=== PATIENT | female | born 1965 | race Caucasian/White ===

== ENCOUNTER 2016-08-19 20:34 | Emergency (ER) | payer OTHER ==
[2016-08-19] MEDS ORDERED: ALPRAZolam 0.5 MG TAB PO STA (21:13)
[2016-08-19] MEDS ORDERED: oxyCODONE ER 15 MG TAB.ER.12H PO STA (21:13)
--- NOTE | 2016-08-19 21:19 | ED ---
Anxiety HPI - General Chief Complaint: Anxiety Stated Complaint: anxiety/chest pain Time Seen by Provider: 08/19/16 21:00 Source: patient Mode of arrival: ambulatory - History of Present Illness Initial Comments: This patient is a 51 year old woman who presents with complaint that she is having some chest tightness all across her chest. It is been going on all day. She believes that it is anxiety, related to the fact that her is in the hospital and it sounds as if he has had an anoxic brain injury and will end up dying in the next few hours. The patient does have history of underlying anxiety and takes Xanax but has been without her medications for over 24 hours now. In addition she is having some left hip pain that she states is chronic and for which she takes OxyContin 30 mg 3 times a day, and she has been without this medication. Related to the chest pain, it is constant, tight feeling, moderate intensity, she has not had any relieving factors, and she states is made worse by stress. She is not having any associated symptoms other than the fact that she had some palpitations associated. MD Complaint: anxiety, other (Chest pain) Onset/Timin -: days(s) Symptoms: chest pain Place: home Previous History of Same: Yes Severity: moderate Quality: constant Provoking factors: emotional stress, recent /illness of family member Improves With: nothing Worsens With: nothing Associated symptoms: chest pain, shortness of breath - Related Data Home Medications: Home Medications Medication Instructions Recorded Confirmed Hydrocodone/Acetaminophen [[place] 1 tab PO Q4H PRN 10/17/14 08/19/16 10-325] ALPRAZolam [Xanax] 1 mg PO TID 01/25/15 08/19/16 Gabapentin [Neurontin] 800 mg PO TID 08/19/16 08/19/16 Lisinopril [Zestril] 10 mg PO QAM 08/19/16 08/19/16 oxyCODONE HCL 30 mg PO TID 08/19/16 08/19/16 Allergies/Adverse Reactions: Allergies Allergy/AdvReac Type Severity Reaction Status Date / Time ibuprofen [From Motrin] Allergy Rash/Hives Verified 08/19/16 21:23 ketorolac tromethamine Allergy Rash/Hives Verified 08/19/16 21:23 [From Toradol] Penicillins Allergy Anaphylaxis Verified 08/19/16 21:23 Review of Systems ROS Statement: Those systems with pertinent positive or pertinent negative responses have been documented in the HPI. ROS Other: All systems not noted in ROS Statement are negative. Constitutional: Denies: fever, weakness Eyes: Denies: vision change Respiratory: Denies: cough, dyspnea, wheezes Cardiovascular: Reports: chest pain, palpitations. Denies: edema, syncope Gastrointestinal: Denies: abdominal pain, nausea, vomiting Musculoskeletal: Denies: back pain Skin: Denies: rash Neurological: Denies: headache, weakness, numbness Psychiatric: Reports: anxiety. Denies: auditory hallucinations, visual hallucinations, homicidal thoughts, suicidal thoughts Past Medical History Past Medical History: No Reported History, Osteoarthritis (OA) History of Any Multi-Drug Resistant Organisms: None Reported Past Surgical History: Section, Hysterectomy, Orthopedic Surgery Additional Past Surgical History / Comment(s): laparoscopy Past Psychological History: Anxiety Smoking Status: Former smoker Past Alcohol Use History: Occasional Past Drug Use History: None Reported General Exam Limitations: no limitations General appearance: alert, in no apparent distress, anxious Head exam: Present: atraumatic, normocephalic, normal inspection Eye exam: Present: normal appearance. Absent: scleral icterus, conjunctival injection ENT exam: Present: normal oropharynx Neck exam: Present: normal inspection, full ROM Respiratory exam: Present: normal lung sounds bilaterally. Absent: respiratory distress, wheezes, rales, rhonchi, stridor Cardiovascular Exam: Present: regular rate, normal rhythm, normal heart sounds. Absent: systolic murmur, diastolic murmur, rubs, gallop GI/Abdominal exam: Present: soft. Absent: distended, tenderness, guarding, rebound, mass Extremities exam: Present: normal inspection, normal capillary refill. Absent: pedal edema, calf tenderness Back exam: Present: normal inspection. Absent: CVA tenderness (R), CVA tenderness (L) Neurological exam: Present: alert Psychiatric exam: Present: anxious. Absent: flat affect, manic, homicidal ideation, suicidal ideation Skin exam: Present: warm, dry, intact, normal color. Absent: rash Course Vital Signs 08/19/16 08/19/16 08/19/16 20:51 21:06 21:52 Temperature 98.7 F 97.7 F Pulse Rate 108 H 95 Pulse Rate [ 101 H [place] Stitcher ] Respiratory 26 H 18 Rate Blood Pressure 155/90 151/93 O2 Sat by Pulse 98 97 Oximetry Medical Decision Making - Lab Data Result diagrams: 08/19/16 21:00 08/19/16 21:00 Lab Results 08/19/16 08/19/16 08/19/16 Range/Units 21:00 21:00 21:00 WBC 10.1 (3.8-10.6) k/uL RBC 3.94 (3.80-5.40) m/uL Hgb 13.7 (11.4-16.0) gm/dL Hct 41.8 (34.0-46.0) % MCV 106.2 H (80.0-100.0) fL MCH 34.8 (25.0-35.0) pg MCHC 32.8 (31.0-37.0) g/dL RDW 13.7 (11.5-15.5) % Plt Count 231 (150-450) k/uL Neutrophils % 59 % Lymphocytes % 32 % Monocytes % 3 % Eosinophils % 3 % Basophils % 1 % Neutrophils # 6.0 (1.3-7.7) k/uL Lymphocytes # 3.3 (1.0-4.8) k/uL Monocytes # 0.3 (0-1.0) k/uL Eosinophils # 0.3 (0-0.7) k/uL Basophils # 0.1 (0-0.2) k/uL Macrocytosis Moderate PT (9.0-12.0) sec INR (<1.1) APTT (22.0-30.0) sec Sodium 141 (137-145) mmol/L Potassium 3.9 (3.5-5.1) mmol/L Chloride 106 (98-107) mmol/L Carbon Dioxide 20 L (22-30) mmol/L Anion Gap 15 mmol/L BUN 13 (7-17) mg/dL Creatinine 0.70 (0.52-1.04) mg/dL Est GFR (MDRD) Af Amer >60 (>60 ml/min/1.73 sqM) Est GFR (MDRD) Non-Af >60 (>60 ml/min/1.73 sqM) Glucose 96 (74-99) mg/dL Calcium 9.7 (8.4-10.2) mg/dL Magnesium 2.0 (1.6-2.3) mg/dL Total Bilirubin 1.0 (0.2-1.3) mg/dL AST 24 (14-36) U/L ALT 30 (9-52) U/L Alkaline Phosphatase 89 (38-126) U/L Total Creatine Kinase 95 (30-135) U/L CK-MB (CK-2) 1.9 (0.0-2.4) ng/mL CK-MB (CK-2) Rel Index 2.0 Troponin I <0.012 (0.000-0.034) ng/mL Total Protein 7.8 (6.3-8.2) g/dL Albumin 4.7 (3.5-5.0) g/dL 08/19/16 Range/Units 21:00 WBC (3.8-10.6) k/uL RBC (3.80-5.40) m/uL Hgb (11.4-16.0) gm/dL Hct (34.0-46.0) % MCV (80.0-100.0) fL MCH (25.0-35.0) pg MCHC (31.0-37.0) g/dL RDW (11.5-15.5) % Plt Count (150-450) k/uL Neutrophils % % Lymphocytes % % Monocytes % % Eosinophils % % Basophils % % Neutrophils # (1.3-7.7) k/uL Lymphocytes # (1.0-4.8) k/uL Monocytes # (0-1.0) k/uL Eosinophils # (0-0.7) k/uL Basophils # (0-0.2) k/uL Macrocytosis PT 10.1 (9.0-12.0) sec INR 1.0 (<1.1) APTT 22.1 (22.0-30.0) sec Sodium (137-145) mmol/L Potassium (3.5-5.1) mmol/L Chloride (98-107) mmol/L Carbon Dioxide (22-30) mmol/L Anion Gap mmol/L BUN (7-17) mg/dL Creatinine (0.52-1.04) mg/dL Est GFR (MDRD) Af Amer (>60 ml/min/1.73 sqM) Est GFR (MDRD) Non-Af (>60 ml/min/1.73 sqM) Glucose (74-99) mg/dL Calcium (8.4-10.2) mg/dL Magnesium (1.6-2.3) mg/dL Total Bilirubin (0.2-1.3) mg/dL AST (14-36) U/L ALT (9-52) U/L Alkaline Phosphatase (38-126) U/L Total Creatine Kinase (30-135) U/L CK-MB (CK-2) (0.0-2.4) ng/mL CK-MB (CK-2) Rel Index Troponin I (0.000-0.034) ng/mL Total Protein (6.3-8.2) g/dL Albumin (3.5-5.0) g/dL - EKG Data -: EKG Interpreted by Pa EKG shows normal: sinus rhythm, axis (Normal), intervals (Normal), QRS complexes (Normal) Rate: tachycardia Interpretation: nonspecific ST-T wave changes Disposition Clinical Impression: Acute anxiety, Chest pain Disposition: Left Against Medical Advice Condition: Undetermined Instructions: Generalized Anxiety Disorder (ED) Referrals: Yue Parikh MD [Primary Care Provider] - 1-2 days
[2016-08-19 21:24] LABS: Basophils # (A) 0.1 k/uL (0-0.2); Basophils % (A) 1 %; CH 35.1; CHCM 33.2; Eosinophils # (A) 0.3 k/uL (0-0.7); Eosinophils % (A) 3 %; HCT 41.8 % (34.0-46.0); HDW 2.22; HGB 13.7 gm/dL (11.4-16.0); Luc # (Auto) 0.22; Luc % (Auto) 2; Lymphocytes # (A) 3.3 k/uL (1.0-4.8); Lymphocytes % (A) 32 %; MCH 34.8 pg (25.0-35.0); MCHC 32.8 g/dL (31.0-37.0); MCV 106.2 fL (80.0-100.0); Macrocytosis Moderate; Mean Platelet Volume 6.5; Monocytes # (A) 0.3 k/uL (0-1.0); Monocytes % (A) 3 %; Neutrophils % (A) 59 %; RBC 3.94 m/uL (3.80-5.40); RDW 13.7 % (11.5-15.5); WBC 10.1 k/uL (3.8-10.6); WBC (Perox) 10.21
[2016-08-19] MEDS ORDERED: LISINOPRIL 10 MG TAB PO STA (21:30)
[2016-08-19 21:39] LABS: ALT 30 U/L (9-52); AST 24 U/L (14-36); Alkaline Phosphatase 89 U/L (38-126); Anion Gap 15 mmol/L; Blood Urea Nitrogen 13 mg/dL (7-17); Calcium 9.7 mg/dL (8.4-10.2); Carbon Dioxide 20 mmol/L (22-30); Chloride 106 mmol/L (98-107); Glucose 96 mg/dL (74-99); Non-African American GFR(MDRD) >60 (>60 ml/min/1.73 sqM); Potassium 3.9 mmol/L (3.5-5.1); Sodium 141 mmol/L (137-145); Total Protein 7.8 g/dL (6.3-8.2)
[2016-08-19 21:41] LABS: Partial Thromboplastin Time 22.1 sec (22.0-30.0); Prothrombin Time 10.1 sec (9.0-12.0)
[2016-08-19 21:51] LABS: Creatine Kinase 95 U/L (30-135)
[2016-08-19 21:53] VITALS: BP 151/93; PULSE 95; RESP 18; TEMP 97.7
--- NOTE | 2016-08-19 21:58 | XR ---
EXAMINATION TYPE: XR chest 1V portable DATE OF EXAM: 08/19/2016 9:35 PM COMPARISON: 03/21/2013 HISTORY: Chest pain TECHNIQUE: Single frontal view of the chest is obtained. FINDINGS: There is no heart failure nor confluent pneumonic infiltrate. There are no hilar masses. T here are chest leads. I see no pleural effusion. IMPRESSION: No active cardiopulmonary disease. No change.
[2016-08-19 22:04] LABS: Creatine Kinase MB 1.9 ng/mL (0.0-2.4); Troponin I <0.012 ng/mL (0.000-0.034)
== END 2016-08-19 22:10 | disposition left against medical advice (07) ==
LOC: EC 20:34
DX: F41.9 Anxiety disorder, unspecified (principal); R07.89 Other chest pain; G89.29 Other chronic pain; M25.552 Pain in left hip; Z87.891 Personal history of nicotine dependence; M19.90 Unspecified osteoarthritis, unspecified site; Z79.891 Long term (current) use of opiate analgesic; Z79.899 Other long term (current) drug therapy; Z88.6 Allergy status to analgesic agent; Z88.0 Allergy status to penicillin
CPT/HCPCS: 36415; 71010; 80053; 82550; 82553; 83735; 84484; 85025; 85610; 85730; 93005; 99284

== ENCOUNTER 2016-11-15 21:37 | Emergency (ER) | payer OTHER ==
[2016-11-15] MEDS ORDERED: SODIUM CHLORIDE 0.9% 1,000 ML IV STA (21:48)
[2016-11-15] MEDS ORDERED: RX INFO: IV CONTRAST WAS GIVEN 1 EACH MISC MISCELLANE PRN (21:48)
[2016-11-15] MEDS ORDERED: LORazepam 2 MG/ML SYRINGE IV STA (21:49)
--- NOTE | 2016-11-15 21:59 | ED ---
Abdominal Pain HPI - General Chief Complaint: Abdominal Pain Stated Complaint: abd pain Time Seen by Provider: 11/15/16 21:41 Source: patient, EMS Mode of arrival: EMS Limitations: no limitations - History of Present Illness Initial Comments: This is a 51-year-old female presents emergency department via EMS chief complaint abdominal pain. Patient has had abdominal pain over the last 1 month states been worsening. She complains of left lower abdominal pain. Patient states over the last today she developed nausea vomiting diarrhea. Patient states in February she had C. diff. She states that she's had multiple episodes of loose watery diarrhea. She denies any known fever but states that she's had some chills. She also complains of dysuria and states it's been going on for the last 1 week. Patient states that she has had a prior C- section 2 white any tubal ligation and hysterectomy. No history of diverticulitis no history kidney stones. - Related Data Home Medications Medication Instructions Recorded Confirmed Hydrocodone/Acetaminophen [[place] 1 tab PO Q4H PRN 10/17/14 11/15/16 10-325] ALPRAZolam [Xanax] 1 mg PO BID 01/25/15 11/15/16 Gabapentin [Neurontin] 800 mg PO TID 08/19/16 11/15/16 oxyCODONE HCL 30 mg PO TID 08/19/16 11/15/16 Carisoprodol [Soma] 350 mg PO TID 11/15/16 11/15/16 Lisinopril [Prinivil] 20 mg PO DAILY 11/15/16 11/15/16 Loperamide HCl [Imodium A-D] 2 mg PO DAILY PRN 11/15/16 11/15/16 Previous Rx's Medication Instructions Recorded Ondansetron Odt [Zofran Odt] 4 mg PO Q8HR PRN #10 tab 11/15/16 Phenazopyridine [Pyridium] 200 mg PO TID #6 tablet 11/15/16 Allergies Allergy/AdvReac Type Severity Reaction Status Date / Time ibuprofen [From Motrin] Allergy Rash/Hives Verified 11/15/16 22:03 ketorolac tromethamine Allergy Rash/Hives Verified 11/15/16 22:03 [From Toradol] Penicillins Allergy Anaphylaxis Verified 11/15/16 22:03 Review of Systems ROS Statement: Those systems with pertinent positive or pertinent negative responses have been documented in the HPI. ROS Other: All systems not noted in ROS Statement are negative. Past Medical History Past Medical History: No Reported History, Osteoarthritis (OA) History of Any Multi-Drug Resistant Organisms: None Reported Past Surgical History: Section, Hysterectomy, Orthopedic Surgery Additional Past Surgical History / Comment(s): laparoscopy Past Psychological History: Anxiety Smoking Status: Former smoker Past Alcohol Use History: Occasional Past Drug Use History: None Reported General Exam Limitations: no limitations General appearance: alert, in no apparent distress Head exam: Present: atraumatic, normocephalic, normal inspection Respiratory exam: Present: normal lung sounds bilaterally. Absent: respiratory distress, wheezes, rales, rhonchi, stridor Cardiovascular Exam: Present: regular rate, normal rhythm, normal heart sounds. Absent: systolic murmur, diastolic murmur, rubs, gallop, clicks GI/Abdominal exam: Present: soft, tenderness (Moderate left lower quadrant tenderness), normal bowel sounds. Absent: distended, guarding, rebound, rigid Back exam: Absent: CVA tenderness (R), CVA tenderness (L) Skin exam: Present: warm, dry, intact, normal color. Absent: rash Course Vital Signs 11/15/16 21:41 Temperature 98.7 F Pulse Rate 103 H Respiratory 18 Rate Blood Pressure 147/104 O2 Sat by Pulse 99 Oximetry Medical Decision Making - Medical Decision Making 51-year-old female presented emergency department for multiple complaints for primary nausea vomiting diarrhea. Patient CT does show changes for enteritis possible ileus. Patient had no evidence of bowel structure. Patient has no signs of acute infection including diverticulitis abscess. Patient does have mild lactic acidosis those this is related to fluid in her mild dehydration. Patient was hydrated with 2 and half liters of fluids. Patient vital signs are stable. Patient is updated on lab results. Patient be discharged with Zofran, put in for her dysuria and follow-up tomorrow morning with primary care physician. - Lab Data Result diagrams: 11/15/16 21:55 11/15/16 21:55 Lab Results 11/15/16 11/15/16 11/15/16 Range/Units 21:55 21:55 21:55 WBC 10.0 (3.8-10.6) k/uL RBC 3.80 (3.80-5.40) m/uL Hgb 13.6 (11.4-16.0) gm/dL Hct 40.2 (34.0-46.0) % MCV 105.7 H (80.0-100.0) fL MCH 35.7 H (25.0-35.0) pg MCHC 33.8 (31.0-37.0) g/dL RDW 14.6 (11.5-15.5) % Plt Count 441 (150-450) k/uL Neutrophils % 62 % Lymphocytes % 28 % Monocytes % 6 % Eosinophils % 2 % Basophils % 1 % Neutrophils # 6.3 (1.3-7.7) k/uL Lymphocytes # 2.8 (1.0-4.8) k/uL Monocytes # 0.6 (0-1.0) k/uL Eosinophils # 0.2 (0-0.7) k/uL Basophils # 0.1 (0-0.2) k/uL Macrocytosis Moderate PT (9.0-12.0) sec INR (<1.2) APTT (22.0-30.0) sec Sodium 142 (137-145) mmol/L Potassium 3.9 (3.5-5.1) mmol/L Chloride 107 (98-107) mmol/L Carbon Dioxide 20 L (22-30) mmol/L Anion Gap 15 mmol/L BUN 8 (7-17) mg/dL Creatinine 0.70 (0.52-1.04) mg/dL Est GFR (MDRD) Af Amer >60 (>60 ml/min/1.73 sqM) Est GFR (MDRD) Non-Af >60 (>60 ml/min/1.73 sqM) Glucose 112 H (74-99) mg/dL Plasma Lactic Acid Ramon 3.3 H* (0.7-2.0) mmol/L Calcium 9.4 (8.4-10.2) mg/dL Total Bilirubin 0.4 (0.2-1.3) mg/dL AST 26 (14-36) U/L ALT 39 (9-52) U/L Alkaline Phosphatase 102 (38-126) U/L Total Protein 7.6 (6.3-8.2) g/dL Albumin 4.6 (3.5-5.0) g/dL Amylase 36 (30-110) U/L Lipase 76 (23-300) U/L Urine Color Urine Appearance (Clear) Urine pH (5.0-8.0) Ur Specific [place] (1.001-1.035) Urine Protein (Negative) Urine Glucose (UA) (Negative) Urine Ketones (Negative) Urine Blood (Negative) Urine Nitrite (Negative) Urine Bilirubin (Negative) Urine Urobilinogen (<2.0) mg/dL Ur Leukocyte Esterase (Negative) Urine RBC (0-5) /hpf Urine WBC (0-5) /hpf Ur Squamous Epith Cells (0-4) /hpf Urine Bacteria (None) /hpf Hyaline Casts (0-2) /lpf Urine Mucus (None) /hpf 11/15/16 11/15/16 Range/Units 21:55 22:12 WBC (3.8-10.6) k/uL RBC (3.80-5.40) m/uL Hgb (11.4-16.0) gm/dL Hct (34.0-46.0) % MCV (80.0-100.0) fL MCH (25.0-35.0) pg MCHC (31.0-37.0) g/dL RDW (11.5-15.5) % Plt Count (150-450) k/uL Neutrophils % % Lymphocytes % % Monocytes % % Eosinophils % % Basophils % % Neutrophils # (1.3-7.7) k/uL Lymphocytes # (1.0-4.8) k/uL Monocytes # (0-1.0) k/uL Eosinophils # (0-0.7) k/uL Basophils # (0-0.2) k/uL Macrocytosis PT 10.1 (9.0-12.0) sec INR 1.0 (<1.2) APTT 23.0 (22.0-30.0) sec Sodium (137-145) mmol/L Potassium (3.5-5.1) mmol/L Chloride (98-107) mmol/L Carbon Dioxide (22-30) mmol/L Anion Gap mmol/L BUN (7-17) mg/dL Creatinine (0.52-1.04) mg/dL Est GFR (MDRD) Af Amer (>60 ml/min/1.73 sqM) Est GFR (MDRD) Non-Af (>60 ml/min/1.73 sqM) Glucose (74-99) mg/dL Plasma Lactic Acid Ram[place] (0.7-2.0) mmol/L Calcium (8.4-10.2) mg/dL Total Bilirubin (0.2-1.3) mg/dL AST (14-36) U/L ALT (9-52) U/L Alkaline Phosphatase (38-126) U/L Total Protein (6.3-8.2) g/dL Albumin (3.5-5.0) g/dL Amylase (30-110) U/L Lipase (23-300) U/L Urine Color Yellow Urine Appearance Cloudy H (Clear) Urine pH 6.0 (5.0-8.0) Ur Specific [place] 1.016 (1.001-1.035) Urine Protein Trace H (Negative) Urine Glucose (UA) Negative (Negative) Urine Ketones Trace H (Negative) Urine Blood Trace H (Negative) Urine Nitrite Negative (Negative) Urine Bilirubin Negative (Negative) Urine Urobilinogen <2.0 (<2.0) mg/dL Ur Leukocyte Esterase Negative (Negative) Urine RBC 1 (0-5) /hpf Urine WBC 3 (0-5) /hpf Ur Squamous Epith Cells 2 (0-4) /hpf Urine Bacteria Rare H (None) /hpf Hyaline Casts 2 (0-2) /lpf Urine Mucus Few H (None) /hpf Disposition Clinical Impression: Nausea & vomiting, Abdominal pain, Enteritis Disposition: HOME SELF-CARE Condition: Stable Instructions: Abdominal Pain (ED) Additional Instructions: Please return to the Emergency Department if symptoms worsen or any other concerns. Prescriptions: Ondansetron Odt [Zofran Odt] 4 mg PO Q8HR PRN #10 tab PRN Reason: Nausea Phenazopyridine [Pyridium] 200 mg PO TID #6 tablet Referrals: Yue Parikh MD [Primary Care Provider] - 1-2 days Time of Disposition: 23:29
[2016-11-15 22:06] LABS: Basophils # (A) 0.1 k/uL (0-0.2); Basophils % (A) 1 %; CH 36.9; CHCM 35.1; Eosinophils # (A) 0.2 k/uL (0-0.7); Eosinophils % (A) 2 %; HCT 40.2 % (34.0-46.0); HDW 2.72; HGB 13.6 gm/dL (11.4-16.0); Luc # (Auto) 0.18; Luc % (Auto) 2; Lymphocytes # (A) 2.8 k/uL (1.0-4.8); Lymphocytes % (A) 28 %; MCH 35.7 pg (25.0-35.0); MCHC 33.8 g/dL (31.0-37.0); MCV 105.7 fL (80.0-100.0); Macrocytosis Moderate; Monocytes # (A) 0.6 k/uL (0-1.0); Monocytes % (A) 6 %; Neutrophils # (A) 6.3 k/uL (1.3-7.7); Neutrophils % (A) 62 %; RDW 14.6 % (11.5-15.5); WBC (Perox) 10.33
[2016-11-15 22:14] LABS: Prothrombin Time 10.1 sec (9.0-12.0)
[2016-11-15] MEDS ORDERED: ONDANSETRON 4 MG/2 ML VIAL IVP STA (22:15)
[2016-11-15 22:18] LABS: ALT 39 U/L (9-52); AST 26 U/L (14-36); Alkaline Phosphatase 102 U/L (38-126); Amylase 36 U/L (30-110); Anion Gap 15 mmol/L; Blood Urea Nitrogen 8 mg/dL (7-17); Calcium 9.4 mg/dL (8.4-10.2); Carbon Dioxide 20 mmol/L (22-30); Chloride 107 mmol/L (98-107); Glucose 112 mg/dL (74-99); Non-African American GFR(MDRD) >60 (>60 ml/min/1.73 sqM); Potassium 3.9 mmol/L (3.5-5.1); Sodium 142 mmol/L (137-145); Total Bilirubin 0.4 mg/dL (0.2-1.3); Total Protein 7.6 g/dL (6.3-8.2)
[2016-11-15 22:21] LABS: Appearance,Urine Cloudy (Clear); Bacteria,Urine Rare /hpf; Bilirubin,Urine Negative (Negative); Glucose,Urine (UA) Negative (Negative); Ketones,Urine Trace (Negative); Leukocyte Esterase,Urine Negative (Negative); Mucus,Urine Few /hpf; Nitrite,Urine Negative (Negative); Particle Count 6872; Protein,Urine Trace (Negative); RBC,Urine 1 /hpf (0-5); Specific Gravity,Urine 1.016 (1.001-1.035); Squamous Epithelial Cell,Urine 2 /hpf (0-4); UA Billing (MACRO vs. MICRO) MICRO; Urobilinogen,Urine <2.0 mg/dL (<2.0); WBC,Urine 3 /hpf (0-5)
[2016-11-15] MEDS ORDERED: SODIUM CHLORIDE 0.9% 2,000 ML IV ONE (22:37)
--- NOTE | 2016-11-15 23:10 | CT ---
EXAM: CT Abdomen and Pelvis With Intravenous Contrast CLINICAL HISTORY: Lower abdominal pain, diarrhea and vomiting. TECHNIQUE: Axial computed tomography images of the abdomen and pelvis with intravenous contrast. Coronal and sagittal reformatted images were created and reviewed. Axial delayed images were obtained. CTDI is 22.30, 22.00 mGy and DLP is 1869.40 mGy-cm. This CT exam was performed using one or more of the following dose reduction techniques: automated exposure control, adjustment of the mA and/or kV according to patient size, and/or use of iterative reconstruction technique. CONTRAST: 100 mL of Omnipaque 300 administered intravenously. COMPARISON: CT dated 01/25/2015. FINDINGS: Lower thorax: No acute findings. ABDOMEN: Liver: Mild fatty infiltration of the liver. Normal hepatic size. No evidence of hepatic mass. Gallbladder and bile ducts: Unremarkable. No radiopaque calculi. No biliary ductal dilation. Pancreas: Unremarkable. No ductal dilation. No mass. No adjacent inflammatory changes. Spleen: Unremarkable. No splenomegaly. Adrenals: Unremarkable. No mass. Kidneys and ureters: Unremarkable. No hydronephrosis or ureteral calculus. No solid mass. Stomach and bowel: No bowel obstruction. Few scattered air-fluid levels within small bowel loops. No bowel wall thickening. Few colonic diverticula without evidence of acute diverticulitis. Appendix: Normal appendix. PELVIS: Bladder: Bladder is underdistended which limits further evaluation. Reproductive: Unremarkable as visualized. ABDOMEN and PELVIS: Intraperitoneal space: No free air. No ascites or significant fluid collection. Bones/joints: Mild osseous degenerative changes. No acute fracture. No suspicious osseous lesion. Soft tissues: No acute abnormality. Vasculature: Mild scattered atherosclerosis along the iliac arteries. No aortic aneurysm. Lymph nodes: Unremarkable. No enlarged lymph nodes. IMPRESSION: 1. Few scattered air-fluid levels within small bowel loops which may represent mild nonspecific enteritis or ileus. Correlate clinically. 2. No bowel obstruction, bowel wall thickening, ascites or free air. Normal appendix. 3. Few colonic diverticula without evidence of acute diverticulitis. 4. Mild fatty infiltration of the liver.
[2016-11-15] MEDS ORDERED: HYDROmorphone 1 MG/ML 1 ML SYRINGE IVP STA (23:12)
[2016-11-15] MEDS ORDERED: ONDANSETRON 4 MG ODT STARTER PACK 2 TAB BTL PO STA (23:29)
[2016-11-15 23:55] VITALS: BP 158/70; PULSE 99; RESP 16; TEMP 98
== END 2016-11-15 23:50 | disposition home or self-care (01) ==
LOC: EC 21:37
DX: K52.9 Noninfective gastroenteritis and colitis, unspecified (principal); F41.9 Anxiety disorder, unspecified; Z87.891 Personal history of nicotine dependence; Z86.19 Personal history of other infectious and parasitic diseases; Z88.0 Allergy status to penicillin; Z88.6 Allergy status to analgesic agent; Z79.891 Long term (current) use of opiate analgesic; Z79.899 Other long term (current) drug therapy
CPT/HCPCS: 36415; 80053; 82150; 83605; 83690; 85025; 85610; 85730; 81001; 74177; 99285; 96374; 96375 ×2; 96361 ×2; J2060; J2405; J1170; Q9967; S0119

== ENCOUNTER 2016-11-16 01:37 | Emergency (ER) | payer OTHER ==
[2016-11-16] MEDS ORDERED: PROMETHAZINE INJ 25 MG/ML 1 ML VIAL IM STA (02:53)
[2016-11-16] MEDS ORDERED: HYDROmorphone 1 MG/ML 1 ML SYRINGE IM STA (02:53)
[2016-11-16] MEDS ORDERED: DICYCLOMINE 10 MG/ML 2 ML AMP IM STA (02:53)
--- NOTE | 2016-11-16 02:54 | ED ---
Abdominal Pain HPI - General Chief Complaint: Abdominal Pain Stated Complaint: abd pain Time Seen by Provider: 11/16/16 02:48 Source: patient, RN notes reviewed Mode of arrival: wheelchair Limitations: no limitations - History of Present Illness Initial Comments: 51-year-old female presented emergency department again for abdominal pain. Patient was just discharged emergency Department and states that she does not have a ride home 7 waiting room felt nauseated. Patient states that she still has pain and checked back in. Patient was discharged discharge less than 1 hour ago. Patient lab for reviewed CT reviewed patient was hydrated adequately. Patient CT did not reveal any signs of acute abnormality other than enteritis type changes. Patient is requesting medications at this time. - Related Data Home Medications Medication Instructions Recorded Confirmed Hydrocodone/Acetaminophen [[place] 1 tab PO Q4H PRN 10/17/14 11/15/16 10-325] ALPRAZolam [Xanax] 1 mg PO BID 01/25/15 11/15/16 Gabapentin [Neurontin] 800 mg PO TID 08/19/16 11/15/16 oxyCODONE HCL 30 mg PO TID 08/19/16 11/15/16 Carisoprodol [Soma] 350 mg PO TID 11/15/16 11/15/16 Lisinopril [Prinivil] 20 mg PO DAILY 11/15/16 11/15/16 Loperamide HCl [Imodium A-D] 2 mg PO DAILY PRN 11/15/16 11/15/16 Previous Rx's Medication Instructions Recorded Ondansetron Odt [Zofran Odt] 4 mg PO Q8HR PRN #10 tab 11/15/16 Phenazopyridine [Pyridium] 200 mg PO TID #6 tablet 11/15/16 Allergies Allergy/AdvReac Type Severity Reaction Status Date / Time ibuprofen [From Motrin] Allergy Rash/Hives Verified 11/15/16 22:03 ketorolac tromethamine Allergy Rash/Hives Verified 11/15/16 22:03 [From Toradol] Penicillins Allergy Anaphylaxis Verified 11/15/16 22:03 Review of Systems ROS Statement: Those systems with pertinent positive or pertinent negative responses have been documented in the HPI. ROS Other: All systems not noted in ROS Statement are negative. Past Medical History Past Medical History: No Reported History, Osteoarthritis (OA) History of Any Multi-Drug Resistant Organisms: None Reported Past Surgical History: Section, Hysterectomy, Orthopedic Surgery Additional Past Surgical History / Comment(s): laparoscopy Past Psychological History: Anxiety Smoking Status: Former smoker Past Alcohol Use History: Occasional Past Drug Use History: None Reported General Exam Limitations: no limitations General appearance: alert, in no apparent distress Respiratory exam: Present: normal lung sounds bilaterally. Absent: respiratory distress, wheezes, rales, rhonchi, stridor Cardiovascular Exam: Present: regular rate, normal rhythm, normal heart sounds. Absent: systolic murmur, diastolic murmur, rubs, gallop, clicks GI/Abdominal exam: Present: soft, tenderness (Left lower quadrant tenderness), normal bowel sounds. Absent: distended, guarding, rebound, rigid Back exam: Absent: CVA tenderness (R), CVA tenderness (L) Course Vital Signs 11/16/16 01:37 Temperature 99.3 F Pulse Rate 102 H Respiratory 20 Rate Blood Pressure 202/106 O2 Sat by Pulse 98 Oximetry Medical Decision Making - Medical Decision Making 51-year-old female presented from abdominal pain. Patient's prior records medical records history was reviewed patient will be given a denies medications and to ice and pain medication and discharge. She is advised that she is to follow-up with primary care physician Disposition Clinical Impression: Chronic pain, Enteritis, Abdominal pain Disposition: HOME SELF-CARE Condition: Stable Instructions: Abdominal Pain (ED) Additional Instructions: Please return to the Emergency Department if symptoms worsen or any other concerns. Referrals: Yue Parikh MD [Primary Care Provider] - 1-2 days Time of Disposition: 02:54
[2016-11-16 03:50] VITALS: BP 164/77; PULSE 75; RESP 16; TEMP 98.9
== END 2016-11-16 03:49 | disposition home or self-care (01) ==
LOC: EC 01:37
DX: K52.9 Noninfective gastroenteritis and colitis, unspecified (principal); R10.9 Unspecified abdominal pain; G89.29 Other chronic pain; M19.90 Unspecified osteoarthritis, unspecified site; F41.9 Anxiety disorder, unspecified; Z87.891 Personal history of nicotine dependence; Z79.899 Other long term (current) drug therapy; Z79.891 Long term (current) use of opiate analgesic; Z88.0 Allergy status to penicillin; Z88.6 Allergy status to analgesic agent; Z90.710 Acquired absence of both cervix and uterus
CPT/HCPCS: 99283; 96372 ×3; J0500; J2550; J1170